=== PATIENT | male | born 1995 | race African-American/Black ===

== ENCOUNTER 2022-12-09 15:20 | Emergency (ER) | payer SELFPAY ==
[~2022-12-09] VITALS: Ht 175.3 cm; Wt 72.6 kg
[2022-12-09] MEDS ORDERED: AMOX TR-K CLV1 EAC2 PO (18:37)
[2022-12-09 18:59] VITALS: O2SAT 100
== END 2022-12-09 18:55 | disposition home or self-care (01) ==
LOC: FSED 15:39
DX: J01.90 Acute sinusitis, unspecified (principal); F17.210 Nicotine dependence, cigarettes, uncomplicated
CPT/HCPCS: 99283